=== PATIENT | male | born 1960 | race Hispanic/Latino ===

== ENCOUNTER → 2023-02-03 | Outpatient (CLI) | payer MEDICAID | END | disposition home or self-care (01) | LOC: SHCH 08:44 | PROVIDERS: ATTEND Internal Medicine Cardiovascular Disease | DX: I73.9 Peripheral vascular disease, unspecified (principal) | CPT/HCPCS: 93925 ==

== ENCOUNTER → 2024-07-31 | Outpatient (CLI) | payer MEDICARE ==
--- NOTE | 2024-07-31 15:09 | HMCSR ---
APPROVED REPORT Height: 5 ft 9in Weight: 205 lbs TEST INDICATIONS CAD The imaging protocol used to acquire images was Rest Tc-99m/stress Tc-99m 1 day Consent: The procedure was explained and understood by the patient. Informerd consent was witnessed ALEX ZhaoMT First, low dose rest was performed then high dose stress. RESTING DATA: The resting ekg shows: NSR Rest SPECT myocardial perfusion imaging was performed in supine position minutes following the intra venous injection of 11 mCi of Tc-99 Sestamibi. Time of rest injection: Date: 07/31/2024 Time of rest imaging: Date: 07/31/2024 PHARMACOLOGIC STRESS: Time of stress injection: Date: 07/31/2024 Time of stress imaging: Date: 07/31/2024 The images were gated to evaluate regional wall motion and calculate left ventricular ejection fracti on. EXERCISE STRESS: At peak stress, the patient was injected intravenously with 28mCi of Tc-99 Sestamibi. Time of stress injection: Date: 07/31/2024 Time of stress imaging: Date: 07/31/2024 Heart Rate at time of stress injection: 130 bpm. Patient continued to exercise for 1 minute(s). Gated Stress SPECT was performed 60 minutes after stress injection. The images were gated to evaluate regional wall motion and calculate left ventricular ejection fracti on. STRESS DETAILS Reason for Termination: Reached target heart rate Stress Symptoms: Fatigue Max HR Achieved: 133 bpm % of APMHR Achieved: 102 Max Blood Pressure: 176/90 mmHg Exercise duration: 8 min Exercise capacity: 10.15METs Highest Stage Achieved: Stage 3: 3.4 mph at 14% grade. Stress ECG: NSR Study quality was good. Lung uptake was Normal. Artifact: No artifact IMPRESSION Normal exercise nuclear stress test. Conclusion Normal perfusion. TID 0.78. LVEF 69%.
== END | disposition home or self-care (01) ==
LOC: RAH 08:24
PROVIDERS: ATTEND Internal Medicine Cardiovascular Disease
DX: I25.10 Atherosclerotic heart disease of native coronary artery without angina pectoris (principal); R53.83 Other fatigue; Z95.5 Presence of coronary angioplasty implant and graft
CPT/HCPCS: 78452; 93017; A9500 ×2